=== PATIENT | male | born 2000 | race Caucasian/White ===

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

== ENCOUNTER → 2020-09-16 09:17 | Outpatient (CLI) | payer BC, SELFPAY | PROVIDERS: PCP Internal Medicine; Referring Provider Otolaryngology; Visit Provider Otolaryngology | DX: Z11.52 Encounter for screening for COVID-19 (principal) | CPT/HCPCS: 87635; U0005; U0003 ==

== ENCOUNTER → 2025-03-14 | Outpatient (CLI) | payer BC, SELFPAY ==
[2025-03-14 15:01] LABS: Hematocrit 44.2 % (40-54); Hemoglobin 14.9 g/dL (13.0-16.5); Immature Granulocytes Count 0.010 X10^3/uL (0.0-0.0); Mean Corp Hgb Conc 33.7 g/dL (32-36); Mean Corpuscular Volume 87.0 fL (80-94); Mean Platelet Vol. 11.2 fl (6.2-12.0); NRBC Flagged by Analyzer 0 % (0-5); Platelet Count 206 K/mm3 (150-450); RBC Distribution Width CV 12.3 % (11.6-14.6); RBC Distribution Width SD 39.2 fl (35.1-43.9); Red Blood Count 5.08 M/mm3 (4.6-6.2); White Blood Count 4.8 K/mm3 (4.4-11.0)
[2025-03-14 16:09] LABS: AST(SGOT) 58 U/L (<=37); Alanine Aminotransfer ALT/SGPT 37 U/L (<=46); Albumin, Serum 4.4 g/dL (3.5-5.0); Alkaline Phosphatase 59 U/L (40-129); Anion Gap 10 (7-18); BUN 13 mg/dL (4-19); BUN/Creat Ratio 11.6 RATIO (10-20); Calcium,Total 9.4 mg/dL (7.6-11.0); Carbon Dioxide 26.6 mmol/L (20.0-29.0); Chloride 105 mmol/L (96-106); Ferritin 169 ng/mL (37-417); Globulin 2.4 g/dL (2.2-4.2); Glucose 72 mg/dL (70-99); Potassium 3.8 mmol/L (3.5-5.1); Vitamin B12 673 pg/mL (180-914)
[2025-03-17 13:07] LABS: QNTFERON TB Mitogen Value > 10.00 IU/mL (.); QNTFERON TB Nil Value 0.04 IU/mL (.); QNTFERON TB1+ Ag Value 0.03 IU/mL (.); QNTFERON TB2+ Ag Value 0.02 IU/mL (.); QNTIFERON TB Positive Criteria Negative (Negative)
== END | disposition home or self-care (01) ==
LOC: CIMLAB 13:04
PROVIDERS: PCP Internal Medicine; Referring Provider Internal Medicine; Visit Provider Internal Medicine
DX: Z00.00 Encounter for general adult medical examination without abnormal findings (principal); R53.83 Other fatigue
CPT/HCPCS: 36415; 80053; 82607; 82728; 84402; 84443; 85025; 86480